=== PATIENT | male | born 1930 | race Caucasian/White ===

== ENCOUNTER 2017-06-15 17:46 | Inpatient (IN) | payer MEDICARE ==
[~2017-06-15] VITALS: Ht 170.2 cm; Wt 65.5 kg
[~2017-06-15 17:46] MED LIST: Aspir 8181 MG PO; CENTRUM SILVER1 EAC2 PO; CHOL10002 PO; Cleocin HCl300 MG PO; Diflucan100 MG PO; GLYMET5; GLYMET5 PO; HYDACE5 PO; IBUP600 PO; LISI10 PO; LISI20 PO; MAGIC MOUTHWASH; MECL25 PO; METF500 PO; MULVITA; MULVITMINF PO; Norco 5-325 Ta1 EACH PO; OMEPRAZOLE MAGN20 MG PO; ONDA4ODT MM; RXPROM25 PO; SITA100T2 PO; TAMS.4ER PO; TRAM50 PO; TRIHYD253A PO
[2017-06-15] MEDS ORDERED: DOXY100 PO (18:17)
[2017-06-15] MEDS ORDERED: CETI5 PO (18:18)
[2017-06-15] MEDS ORDERED: ASPI81CH PO (18:19)
[2017-06-15] MEDS ORDERED: ZESTORETIC 20-121 EA PO (18:19)
[2017-06-15] MEDS ORDERED: GLIP5 PO (18:20)
[2017-06-15] MEDS ORDERED: CHOL10002 PO (18:22)
[2017-06-15 18:23] LABS: BASOPHILS ABSOLUTE AUTO 0.08 K/mm3 (0.00-0.23); BASOPHILS PERCENT AUTO 1 % (0-2); EOSINOPHILS ABSOLUTE AUTO 0.15 K/mm3 (0.00-0.68); EOSINOPHILS PERCENT AUTO 1 % (0-6); Hematocrit 36.4 % (37.0-53.0); Hemoglobin 12.2 g/dL (13.5-17.5); IMMATURE GRAN ABSOLUTE AUTO 0.09 K/mm3 (0.00-0.10); IMMATURE GRAN PERCENT AUTO 1 % (0-1); LYMPHOCYTES ABSOLUTE AUTO 2.74 K/mm3 (0.84-5.20); LYMPHOCYTES PERCENT AUTO 18 % (21-46); MONOCYTES ABSOLUTE AUTO 1.33 K/mm3 (0.16-1.47); MONOCYTES PERCENT AUTO 9 % (4-13); Mean Corpuscular HGB 31.1 pg (26.0-34.0); Mean Corpuscular HGB Conc 33.5 g/dL (31.5-36.5); Mean Corpuscular Volume 93 fL (80-100); Mean Platelet Volume 10.4 fL (9.1-12.4); NEUTROPHILS ABSOLUTE AUTO 10.59 K/mm3 (1.96-9.15); NEUTROPHILS PERCENT AUTO 71 % (41-73); Platelet Count 256 K/mm3 (150-400); RDW Coefficient Variation 12.1 % (11.7-14.2); RDW Standard Deviation 41.1 fL (35.1-46.3); Red Blood Cell Count 3.92 M/mm3 (4.30-5.90); White Blood Cell Count 14.98 K/mm3 (4.00-11.30)
[2017-06-15 18:46] LABS: Albumin, Blood 2.8 g/dL (3.4-5.0); Bilirubin, Total 0.6 mg/dL (0.1-1.0); Bun/Creatinine Ratio 22.3 (12.0-20.0); Calcium, Blood 8.9 mg/dL (8.5-10.1); Creatinine, Blood 1.75 mg/dL (0.60-1.20); Globulin, Blood 2.8 g/dL (2.2-4.0); Magnesium, Blood 1.4 mg/dL (1.6-2.4); Phosphorus, Blood 3.1 mg/dL (2.5-4.9); Potassium, Blood 4.2 mmol/L (3.5-5.5); Total Protein, Blood 5.6 g/dL (6.4-8.2)
[2017-06-15 18:52] LABS: Thyroid Stimulating Hormone 1.49 uIU/mL (0.360-4.800); Troponin I 0.034 ng/mL (0.000-0.040)
[2017-06-15] MEDS ORDERED: GABA100 PO (22:41)
[2017-06-15] MEDS ORDERED: TAMS.4ER PO (22:41)
[2017-06-15 23:48] LABS: Source, Urine Clean Catch
[2017-06-15 23:50] LABS: Bilirubin, Urine Neg (Neg); Blood, Urine Neg (Neg); Glucose Qualitative, Urine Neg (Neg); Ketones, Urine 1+ (Neg); Leukocyte Esterase, Urine Neg (Neg); Nitrite, Urine Neg (Neg); Protein, Urine Neg (Neg); Specific Gravity, Urine 1.015 (1.003-1.022); Urobilinogen, Urine NORM (Normal)
[2017-06-15 23:55] LABS: Appearance, Urine Clear (Clear); Color, Urine Yellow (P-Yellow)
[2017-06-16 05:05] LABS: Bun/Creatinine Ratio 24.4 (12.0-20.0); Calcium, Blood 8.1 mg/dL (8.5-10.1); Creatinine, Blood 1.56 mg/dL (0.60-1.20); Potassium, Blood 4.3 mmol/L (3.5-5.5)
[2017-06-17 04:35] LABS: BASOPHILS ABSOLUTE AUTO 0.07 K/mm3 (0.00-0.23); BASOPHILS PERCENT AUTO 1 % (0-2); EOSINOPHILS ABSOLUTE AUTO 0.18 K/mm3 (0.00-0.68); EOSINOPHILS PERCENT AUTO 2 % (0-6); Hematocrit 31.3 % (37.0-53.0); Hemoglobin 10.8 g/dL (13.5-17.5); IMMATURE GRAN ABSOLUTE AUTO 0.06 K/mm3 (0.00-0.10); IMMATURE GRAN PERCENT AUTO 1 % (0-1); LYMPHOCYTES ABSOLUTE AUTO 2.79 K/mm3 (0.84-5.20); LYMPHOCYTES PERCENT AUTO 25 % (21-46); MONOCYTES ABSOLUTE AUTO 0.96 K/mm3 (0.16-1.47); MONOCYTES PERCENT AUTO 9 % (4-13); Mean Corpuscular HGB 31.9 pg (26.0-34.0); Mean Corpuscular HGB Conc 34.5 g/dL (31.5-36.5); Mean Corpuscular Volume 92 fL (80-100); Mean Platelet Volume 10.3 fL (9.1-12.4); NEUTROPHILS ABSOLUTE AUTO 7.15 K/mm3 (1.96-9.15); NEUTROPHILS PERCENT AUTO 64 % (41-73); Platelet Count 218 K/mm3 (150-400); RDW Coefficient Variation 12.2 % (11.7-14.2); RDW Standard Deviation 41.1 fL (35.1-46.3); Red Blood Cell Count 3.39 M/mm3 (4.30-5.90); White Blood Cell Count 11.21 K/mm3 (4.00-11.30)
[2017-06-17 04:55] LABS: Calcium, Blood 7.9 mg/dL (8.5-10.1); Creatinine, Blood 1.36 mg/dL (0.60-1.20); Potassium, Blood 3.7 mmol/L (3.5-5.5)
[2017-06-17] MEDS ORDERED: GLIP5ER PO (10:55)
== END 2017-06-17 11:48 | disposition home or self-care (01) | DRG 309 ==
LOC: ER 17:46 → PCU 20:12
PROVIDERS: Emergency Medicine; Family Medicine; Hospitalist
DX: I48.0 Paroxysmal atrial fibrillation (principal); L12.9 Pemphigoid, unspecified; E11.65 Type 2 diabetes mellitus with hyperglycemia; I95.9 Hypotension, unspecified; G62.9 Polyneuropathy, unspecified; E86.0 Dehydration; I10 Essential (primary) hypertension; N40.1 Benign prostatic hyperplasia with lower urinary tract symptoms; R39.11 Hesitancy of micturition; R39.12 Poor urinary stream; Z87.891 Personal history of nicotine dependence; Z79.84 Long term (current) use of oral hypoglycemic drugs; H81.10 Benign paroxysmal vertigo, unspecified ear; J30.9 Allergic rhinitis, unspecified; M47.20 Other spondylosis with radiculopathy, site unspecified; T38.0X5A Adverse effect of glucocorticoids and synthetic analogues, initial encounter; Z66 Do not resuscitate; Z79.82 Long term (current) use of aspirin
CPT/HCPCS: 36415; 70450; 71045; 80048; 80053; 81003; 82947; 83605; 83735; 84100; 84443; 84484; 85025; 87040; 93005; 93010; 96361; 96374; 99285; J1160; J1720; J7030

== ENCOUNTER → 2017-06-30 | Outpatient (CLI) | payer MEDICARE ==
[~2017-06-30] MED LIST changes: +ASPI81CH PO; +ATOR20 PO; +CETI5 PO; +DOXY100 PO; +DOXY100T53; +GABA100 PO; +GLIP5 PO; +GLIP5ER PO; +PRED10 PO; +ZESTORETIC 20-121 EA PO
== END ==
LOC: LAB 16:27
DX: L12.0 Bullous pemphigoid (principal)
CPT/HCPCS: 87070; 87077; 87186; 87205

== ENCOUNTER 2017-07-28 11:14 | Emergency (ER) | payer MEDICARE ==
[~2017-07-28] VITALS: Ht 172.7 cm; Wt 74.8 kg
[~2017-07-28 11:14] MED LIST changes: -ATOR20 PO; -DOXY100T53; -PRED10 PO
[2017-07-28 12:06] LABS: Hematocrit 38.1 % (37.0-53.0); Hemoglobin 12.9 g/dL (13.5-17.5); Mean Corpuscular HGB 31.5 pg (26.0-34.0); Mean Corpuscular HGB Conc 33.9 g/dL (31.5-36.5); Mean Corpuscular Volume 93 fL (80-100); Mean Platelet Volume 9.9 fL (9.1-12.4); Platelet Count 372 K/mm3 (150-400); RDW Standard Deviation 44.4 fL (35.1-46.3); Red Blood Cell Count 4.09 M/mm3 (4.30-5.90); White Blood Cell Count 19.35 K/mm3 (4.00-11.30)
[2017-07-28] MEDS ORDERED: DOXY100T53 (12:10)
[2017-07-28 12:26] LABS: Albumin, Blood 2.9 g/dL (3.4-5.0); Albumin/Globulin Ratio 0.9 (0.8-1.8); Bilirubin, Total 0.7 mg/dL (0.1-1.0); Bun/Creatinine Ratio 30.1 (12.0-20.0); Calcium, Blood 9.4 mg/dL (8.5-10.1); Creatinine, Blood 1.93 mg/dL (0.60-1.20); Globulin, Blood 3.1 g/dL (2.2-4.0); Potassium, Blood 4.5 mmol/L (3.5-5.5)
[2017-07-28 12:32] LABS: BASOPHILS PERCENT MAN 0 % (0-2); EOSINOPHILS PERCENT MAN 0 % (0-6); LYMPHOCYTES % ATYPICAL MANUAL 6 % (0-0); LYMPHOCYTES ABSOLUTE MAN 4.06 K/mm3 (0.84-5.20); LYMPHOCYTES PERCENT MAN 15 % (21-46); MONOCYTES ABSOLUTE MAN 0.96 K/mm3 (0.16-1.47); MONOCYTES PERCENT MAN 5 % (4-13); NEUTROPHILS ABSOLUTE MAN 14.31 K/mm3 (1.96-9.15); SEG NEUTROPHILS PERCENT MAN 74 % (41-73); TOTAL CELLS COUNTED 100
[2017-07-28] MEDS ORDERED: GABA100 PO (12:53)
[2017-07-28] MEDS ORDERED: PRED10 PO (12:53)
[2017-07-28] MEDS ORDERED: ATOR20 PO (12:53)
== END 2017-07-28 14:40 | disposition home or self-care (01) ==
LOC: ER 11:14
PROVIDERS: Emergency Medicine
DX: I48.91 Unspecified atrial fibrillation (principal); D72.829 Elevated white blood cell count, unspecified; L10.0 Pemphigus vulgaris; E11.9 Type 2 diabetes mellitus without complications; Z88.5 Allergy status to narcotic agent; Z88.1 Allergy status to other antibiotic agents; Z88.8 Allergy status to other drugs, medicaments and biological substances; Z79.82 Long term (current) use of aspirin; Z79.84 Long term (current) use of oral hypoglycemic drugs; Z79.899 Other long term (current) drug therapy; Z87.891 Personal history of nicotine dependence
CPT/HCPCS: 36415; 71045; 80053; 85025; 93005; 93010; 96365; 96366; 99284; J7030